=== PATIENT | female | born 1980 | race Caucasian/White ===

== ENCOUNTER 2021-01-30 05:15 | Emergency (ER) | payer BC ==
[~2021-01-30] VITALS: Ht 175.3 cm; Wt 62.0 kg
[2021-01-30 05:18] VITALS: BP 102/63
[2021-01-30] MEDS ORDERED: ONDA4TAB5 PO (06:04)
[2021-01-30] MEDS ORDERED: ACETAMINOPHEN 325MG TABLET PO ONE (06:15)
== END 2021-01-30 06:27 | disposition home or self-care (01) ==
LOC: ER 05:15
DX: S09.22XA Traumatic rupture of left ear drum, initial encounter (principal); X58.XXXA Exposure to other specified factors, initial encounter; Y93.E8 Activity, other personal hygiene; Y92.018 Other place in single-family (private) house as the place of occurrence of the external cause
CPT/HCPCS: 99282